=== PATIENT | male | born 1990 | race Caucasian/White ===

== ENCOUNTER → 2018-05-25 | Outpatient (CLI) | payer OTHER | LOC: CIMAGING 07:20 | PROVIDERS: ATTEND Family Medicine | DX: R94.5 Abnormal results of liver function studies (principal); K87 Disorders of gallbladder, biliary tract and pancreas in diseases classified elsewhere; K76.0 Fatty (change of) liver, not elsewhere classified | CPT/HCPCS: 76705-PO ==